=== PATIENT | female | born 1985 | race Caucasian/White ===

== ENCOUNTER 2024-07-19 21:48 | Emergency (ER) | payer MEDICARE, MEDICAID ==
[~2024-07-19] VITALS: Ht 165.1 cm; Wt 64.0 kg
[2024-07-19 21:53] VITALS: TEMP 36.7; O2SAT 98
[2024-07-19] MEDS ORDERED: LEVETIRACETAM 500MG/5ML CUP PO ONE (22:30)
[2024-07-19] MEDS: SODIUM CHLORIDE 0.9% 1,000 ML IV ONE (23:08)
[2024-07-19] MEDS: LEVETIRACETAM 500MG/5ML CUP PO NR (23:08)
[2024-07-19 23:13] LABS: BASOPHILS % 0.6 % (0.0-2.0); EOSINOPHILS % 1.6 % (0.0-5.0); HEMATOCRIT. 31.5 % (36.0-48.0); HEMOGLOBIN. 10.4 g/dL (12.0-16.0); LYMPHOCYTES % 25.9 % (20.0-50.0); MEAN CORPUSCULAR HEMOGLOBIN 29.2 pg (28.0-32.0); MEAN CORPUSCULAR VOLUME 88.4 fL (81.0-99.0); MEAN PLATELET VOLUME 9.9 fl (7.4-10.4); NEUTROPHILS % 63.9 % (40.0-76.0); PLATELET 210 x1000/uL (130-400); RED BLOOD CELL COUNT 3.56 mill/uL (4.2-5.4); RED CELL DISTRIBUTION WIDTH 14.7 % (11.6-14.6); WHITE BLOOD COUNT 8.9 x1000/uL (4.5-11.0)
[2024-07-19 23:25] LABS: CARBON DIOXIDE 28 mEq/L (21-32); CHLORIDE 104 mEq/L (98-107); POTASSIUM 3.3 mEq/L (3.5-5.1); SODIUM 140 mEq/L (136-145)
[2024-07-19 23:26] LABS: CALCIUM 8.6 mg/dL (8.7-10.4)
[2024-07-19 23:31] LABS: CREATININE 0.5 mg/dL (0.6-1.0); GLUCOSE 92 mg/dL (70-105); INR 0.9; PROTHROMBIN TIME 9.8 sec (9.6-11.0); UREA NITROGEN BLOOD 14 mg/dL (9-23)
[2024-07-20 00:16] VITALS: BP 107/59; PULSE 90; RESP 21; O2SAT 98
== END 2024-07-20 00:25 | disposition home or self-care (01) ==
LOC: ER 22:07
DX: R56.9 Unspecified convulsions (principal); F12.90 Cannabis use, unspecified, uncomplicated; F17.200 Nicotine dependence, unspecified, uncomplicated; Z88.8 Allergy status to other drugs, medicaments and biological substances; Z91.041 Radiographic dye allergy status; Z91.148 Patient's other noncompliance with medication regimen for other reason; Z88.1 Allergy status to other antibiotic agents
CPT/HCPCS: 99283; 96360; 80048; 85025; 85610; 36415; J7030